=== PATIENT | female | born 1985 | race African-American/Black ===

== ENCOUNTER 2019-03-28 01:13 | Emergency (ER) | payer MEDICAID ==
[~2019-03-28] VITALS: Ht 170.2 cm; Wt 75.0 kg
[2019-03-28] MEDS ORDERED: FLUORESCEIN SODIUM 1 MG STRIP OS ONE (02:00)
[2019-03-28] MEDS ORDERED: TETRACAINE HCL/PF 0.5% 4 ML OPHTHALMIC SOLUTION OS ONE (02:00)
[2019-03-28] MEDS ORDERED: ERYTHROMYCIN 0.5% 3.5 GM TUBE OPHTHALMIC OINTMENT OS ONE (02:45)
[2019-03-28 03:54] VITALS: BP 129/78
[2019-03-28] MEDS ORDERED: ACETAMINOPHEN/CODEINE 300-30 MG TABLET PO ONE (04:00)
== END 2019-03-28 05:22 | disposition home or self-care (01) ==
LOC: EMS 01:17
DX: H10.9 Unspecified conjunctivitis (principal)